=== PATIENT | female | born 2005 | race Caucasian/White ===

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

== ENCOUNTER 2024-04-20 15:05 | Emergency (ER) | payer MEDICAID ==
[2024-04-20 16:19] VITALS: BP 98/72; PULSE 103
[2024-04-20 17:29] LABS: A/G RATIO 0.7 (1.2-2.2); ALANINE AMINOTRANSFERASE,ALT 20 U/L (12-78); ALKALINE PHOSPHATASE 118 U/L (46-116); ASPARTATE AMNIOTRANSFERASE,AST 10 U/L (15-37); BILIRUBIN TOTAL 0.3 mg/dL (0.2-1.0); BLOOD UREA NITROGEN,BUN 15 mg/dL (7-18); CALCIUM 9.1 mg/dL (8.5-10.1); CARBON DIOXIDE,CO2 25 mmol/L (21-32); CHLORIDE,CL 101 mmol/L (100-108); CREATININE 0.9 mg/dL (0.6-1.0); EST CRCL DRUG DOSING (CG) 86.82 mL/min; ESTIMATED GFR 94 mL/min (>60); GLUCOSE RANDOM 165 mg/dL (74-106); POTASSIUM,K 3.7 mmol/L (3.6-5.2); PROTEIN TOTAL,TP 7.4 g/dL (6.4-8.2); SODIUM,NA 136 mmol/L (140-148)
[2024-04-20 17:32] LABS: ANION GAP 13.7 mmol/L (5.0-14.0)
[2024-04-20] MEDS: Sodium Chloride 0.9% 1,000 ML IV SCH (17:52)
[2024-04-20] MEDS: droPERidol 1.25 MG in Sodium Chloride 0.9% 50 ML IV ONE (17:54)
[2024-04-20] MEDS: diphenhydrAMINE 50 MG/ML SDV IVPUSH ONE (17:56)
[2024-04-20] MEDS: Ketorolac 15 MG/ML SDV IVPUSH ONE (19:07)
== END 2024-04-20 19:26 | disposition home or self-care (01) ==
LOC: JP.ED 15:05
DX: R10.32 Left lower quadrant pain (principal); R11.0 Nausea; R10.13 Epigastric pain; Z88.5 Allergy status to narcotic agent
CPT/HCPCS: 36415; 80053; 83690; 96361; 96365; 96375; 99284; J1200; J1790; J1885; J3490; J7030; 99283

== ENCOUNTER 2024-09-03 09:24 | Emergency (ER) | payer MEDICAID ==
[2024-09-03 11:37] LABS: CORONAVIRUS COVID-19 NAA NEGATIVE (NEGATIVE); INFLUENZA A NAA POSITIVE (NEGATIVE); INFLUENZA B NAA NEGATIVE (NEGATIVE); RESPIRATORY SYNCYTIAL VIR NAA NEGATIVE (NEGATIVE)
[2024-09-03] MEDS ORDERED: Sodium Chloride 0.9% 10 ML Syringe FLUSH PRN (11:52)
[2024-09-03 12:07] LABS: BASOPHILS PERCENT AUTO 0.3 % (0.1-1.3); HEMATOCRIT 35.9 % (34.3-46.0); HEMOGLOBIN 11.2 g/dL (11.2-15.5); IMMATURE GRAN ABSOLUTE AUTO 0.06 K/uL (0.00-0.23); LYMPHOCYTES ABSOLUTE AUTO 0.33 K/uL (0.8-3.3); LYMPHOCYTES PERCENT AUTO 5.3 % (11.4-47.7); MEAN CORPUSCULAR HEMOGLOBIN 24.6 pg (31.6-35.5); MEAN CORPUSCULAR HGB CONC 31.2 g/dL (31.6-35.5); MEAN CORPUSCULAR VOLUME 78.9 fL (81.4-99.0); MONOCYTES ABSOLUTE AUTO 0.62 K/uL (0.20-0.90); NEUTROPHILS PERCENT AUTO 83.4 % (40.0-78.1); PLATELET COUNT,PLT 428 K/uL (130-375); RED BLOOD CELL COUNT 4.55 M/uL (3.77-5.24); WHITE BLOOD CELL COUNT,WBC 6.2 K/uL (3.2-11.0)
[2024-09-03 12:08] LABS: BASOPHILS ABSOLUTE AUTO 0.02 K/uL (0.00-0.10)
[2024-09-03] MEDS: Ibuprofen 600 MG Tab PO ONE (12:15)
[2024-09-03 12:24] LABS: CALCIUM 8.5 mg/dL (8.5-10.1); CREATININE 0.8 mg/dL (0.6-1.0); EST CRCL DRUG DOSING (CG) 96.86 mL/min; POTASSIUM,K 3.5 mmol/L (3.6-5.2)
[2024-09-03 12:25] LABS: ANION GAP 15.5 mmol/L (5.0-14.0)
[2024-09-03] MEDS: Sodium Chloride 0.9% 1,000 ML IV SCH (12:27)
[2024-09-03 13:16] VITALS: BP 120/80
[2024-09-03] MEDS: Oseltamivir 75 MG Cap PO ONE (13:23)
[2024-09-03 13:30] VITALS: PULSE 105
== END 2024-09-03 13:37 | disposition home or self-care (01) ==
LOC: JP.ED 09:24
DX: J10.1 Influenza due to other identified influenza virus with other respiratory manifestations (principal); Z88.5 Allergy status to narcotic agent
CPT/HCPCS: 0241U; 36415; 80048; 83605; 85025; 96360; 99284; A9270; J7030